=== PATIENT | male | born 1990 | race African-American/Black ===

== ENCOUNTER 2018-08-30 00:08 | Inpatient (IN) | payer OTHER ==
[~2018-08-30] VITALS: Ht 177.8 cm; Wt 75.9 kg
[2018-08-30] VITALS (8 sets, daily range): BP systolic 131–157; BP diastolic 68–90
[2018-08-30] MEDS ORDERED: IV RINGERS SOLUTION,LACTATED 1,000 ML IV SCH (00:29)
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
[2018-08-30] MEDS ORDERED: ALBUTEROL SULFATE 8GM INHALER. INH ONE (00:30)
[2018-08-30] MEDS ORDERED: FAMOTIDINE 20 MG/2 ML VIAL IVP ONE (00:30)
[2018-08-30] MEDS ORDERED: methylPREDNISolone SOD SUCC PF 125 MG/2 ML VIAL. IV ONE (00:30)
[2018-08-30] MEDS ORDERED: FAMOTIDINE 20 MG/2 ML VIAL ONE (01:14)
[2018-08-30] MEDS ORDERED: methylPREDNISolone SOD SUCC PF 125 MG/2 ML VIAL. ONE (01:14)
[2018-08-30 01:19] LABS: BASO # 0.1 x10^3/uL (0.0-0.2); BASO % 0 % (0-3); EOS # 0.3 x10^3/uL (0.0-0.7); EOS % 2 % (0-3); HEMOGLOBIN 9.4 g/dL (13.0-17.5); LYMPH # 1.2 x10^3/uL (1.0-4.8); LYMPH % 7 % (24-48); MEAN CORPUSCULAR HEMOGLOBIN 21 pg (25-35); MEAN CORPUSCULAR HGB CONC 30 g/dL (31-37); MEAN CORPUSCULAR VOLUME 68 fL (79-100); MONO # 1.1 x10^3/uL (0.0-1.1); MONO % 6 % (0-9); NEUT # 15.3 x10^3uL (1.8-7.7); NEUT % 85 % (31-73); PLATELET COUNT 621 x10^3/uL (140-400); RED BLOOD COUNT 4.56 x10^6/uL (4.30-5.70); RED CELL DISTRIBUTION WIDTH 20.5 % (11.5-14.5)
--- NOTE | 2018-08-30 01:26 | EKG ---
[address] [address] Test Date: 2018-08-30 Test Time: 01:07:28 Pat Name: LIZABETH PAYTON Department: Room: Gender: M [employer] Member: RAYMUNDO : 1990 Requested By: JENNIFER HERNANDEZ Order Number: [id number] Reading MD: Rashad Hicks MD Measurements Intervals [place] Rate: 111 P: 42 [place]: 102 QRS: 45 QRSD: 102 T: 16 QT: 334 QTc: 458 Interpretive Statements SINUS TACHYCARDIA Electronically Signed On 09-02-2018 10:30:05 STORAGE RECEIPT POSTER by Rashad Hicks MD
[2018-08-30 01:29] LABS: BILIRUBIN,URINE NEG (NEG); CLARITY,URINE CLEAR; COLOR,URINE YELLOW; GLUCOSE,URINE NEG (NEG)
[2018-08-30 01:30] LABS: BACTERIA,URINE 0 /HPF (0-FEW); NITRITE,URINE NEG (NEG); RBC,URINE 0 /HPF (0-2); SQUAMOUS EPITHELIAL CELL,UR OCC /LPF; UROBILINOGEN,URINE 1 mg/dL (0.2 mg/dL)
[2018-08-30 01:34] LABS: BARBITURATES NEG (NEG); BENZODIAZEPINES NEG (NEG); CANNABINOIDS NEG (NEG); COCAINE NEG (NEG); METHADONE NEG (NEG); OPIATES NEG (NEG); PHENCYCLIDINE NEG (NEG)
[2018-08-30 01:38] LABS: AMPHETAMINE/METHAMPHETAMINE NEG (NEG)
[2018-08-30 01:42] LABS: ALBUMIN 1.8 g/dL (3.4-5.0); CALCIUM 8.5 mg/dL (8.5-10.1); CREATININE 0.7 mg/dL (0.7-1.3); GFR 166.3; MAGNESIUM 1.7 mg/dL (1.8-2.4); POTASSIUM 3.7 mmol/L (3.5-5.1); TOTAL BILIRUBIN 1.7 mg/dL (0.2-1.0); TOTAL PROTEIN 9.9 g/dL (6.4-8.2)
[2018-08-30 01:45] LABS: DIRECT BILIRUBIN 1.3 mg/dL (0.0-0.2)
[2018-08-30] MEDS ORDERED: IV NORMAL SALINE 50ML 50 ML ONE (01:51)
[2018-08-30] MEDS ORDERED: cefTRIAXone SODIUM 1 GM VIAL ONE (01:51)
[2018-08-30 01:57] LABS: INFLUENZA A PATIENT NEGATIVE (NEGATIVE); INFLUENZA B PATIENT NEGATIVE (NEGATIVE)
[2018-08-30 02:07] LABS: % BANDS 1 % (0-9); % EOS 2 % (0-5); % LYMPHS 7 % (24-48); % MONOS 2 % (0-10); % SEGS 88 % (35-66); PLT ESTIMATE INCREASED (ADEQUATE)
[2018-08-30 02:08] LABS: ANISOCYTOSIS MOD; HYPOCHROMIA MARKED; MICROCYTOSIS MARKED
[2018-08-30] MEDS ORDERED: MAGNESIUM SULFATE 2GM 50 ML IV ONE (02:15)
[2018-08-30] MEDS ORDERED: ONDANSETRON PF 4 MG/2 ML VIAL. IV PRN (02:30)
[2018-08-30] MEDS ORDERED: AZITHROMYCIN 500 MG in IV NORMAL SALINE 250ML 250 ML IV ONE (02:30)
[2018-08-30] MEDS ORDERED: IV NORMAL SALINE 250ML 250 ML ONE (02:44)
[2018-08-30] MEDS ORDERED: AZITHROMYCIN 500 MG VIAL. IV ONE (02:44)
[2018-08-30] MEDS ORDERED: IV RINGERS SOLUTION,LACTATED 1,000 ML IV STA (02:45)
[2018-08-30] MEDS ORDERED: IOHEXOL 240 MG/ML 50ML VIAL. ONE (02:47)
[2018-08-30] MEDS ORDERED: VANCOMYCIN 1 GM in IV NORMAL SALINE 250ML 250 ML IV ONE (03:00)
[2018-08-30] MEDS ORDERED: IV RINGERS SOLUTION,LACTATED 1,000 ML IV ONE (03:00)
[2018-08-30] MEDS ORDERED: IOHEXOL 240 MG/ML 50ML VIAL. PO ONE (03:15)
[2018-08-30] MEDS ORDERED: IOHEXOL 350 MG/ML 100 ML VIAL. IV ONE (03:15)
--- NOTE | 2018-08-30 04:09 | RAD ---
CTA Chest and CT abdomen pelvis with contrast: Clinical History: Pain, ulcerative colitis and elevated d-dimer. Axial helical images of the chest abdomen and pelvis were obtained after the administration of 100 cc of IV Isovue-370 contrast. Oral contrast was given as well. CTA chest with contrast: Images are timed appropriately for a pulmonary arterial study. Conventional axial reconstruction was performed in addition to coronal, sagittal and bilateral oblique MIP (maximum intensity projection). This study was ordered to detect possible pulmonary embolism. There are no filling defects to suggest pulmonary embolism. There is consolidation in the lower lobes bilaterally and there are numerous peripheral masslike infiltrate scattered throughout the lungs. There are multiple moderately enlarged lymph nodes in the rebecca and in the mediastinum. There is gynecomastia bilaterally. The thoracic aorta appears normal. Impression: 1. No evidence of pulmonary embolism. 2. Consolidation in the lower lobes and patchy masslike peripheral infiltrates and mild lymphadenopathy. Findings could be secondary to pneumonia or septic emboli or lymphoma. Clinical correlation is suggested. End impression CT Abdomen with contrast: Findings: Liver: Mildly enlarged. The common bile duct appears normal however the intrahepatic biliary tree is moderately dilated. The gallbladder is mostly collapsed. Spleen: Top normal limits in size. There is multiple hypoattenuating lesions in the spleen which are too small to characterize. Pancreas: Unremarkable Adrenal Glands: Unremarkable Kidneys: Unremarkable There is no mass or lymphadenopathy. There is no free air. There is no free fluid. Impression: No acute findings. End Impression CT Pelvis with Contrast: Findings: The urinary bladder appears normal. There is no free fluid. There is no lymphadenopathy. The appendix is not well seen but appears normal. Impression: 1. Mild hepatomegaly. 2. Moderately dilated intrahepatic biliary tree but normal-appearing bile duct. A stricture of proximal common bile duct or Klatskin tumor is possible. 3. Small hyperattenuating lesions in the spleen could be cysts. Septic emboli are possible. See CT a chest with contrast. PQRS Compliance Statement: One or more of the following individualized dose reduction techniques were utilized for this examination: 1. Automated exposure control 2. Adjustment of the mA and/or kV according to patient size 3. Use of iterative reconstruction technique Electronically signed by: Kishor Peterson III, MD (08/30/2018 4:04 AM) [facility]
[2018-08-30] MEDS ORDERED: CALC300T4 PO (04:42)
[2018-08-30] MEDS ORDERED: FERR325T14 PO (04:44)
[2018-08-30] MEDS ORDERED: DICY10CA3 PO (04:44)
[2018-08-30] MEDS: IV RINGERS SOLUTION,LACTATED 1,000 ML IV STA ×2 (04:45→06:45)
--- NOTE | 2018-08-30 04:51 | RAD ---
CTA chest with contrast See CT abdomen pelvis with contrast. Electronically signed by: Kishor Peterson III, MD (08/30/2018 4:46 AM) [facility]
[2018-08-30] MEDS: IPRATRPIUM/ALBUTEROL 0.5/2.5MG 3 ML NEBU. NEB SCH ×4 (05:41→20:21)
[2018-08-30] MEDS: MESALAMINE ER 250 MG CAPSULE.ER PO SCH ×3 (09:00→16:57)
[2018-08-30] MEDS ORDERED: MESALAMINE ER 250 MG CAPSULE.ER PO SCH (09:00)
--- NOTE | 2018-08-30 09:33 | RAD ---
Chest, PA and Lateral: Technique: PA and lateral views of the chest were obtained. History: Chest pain, abdominal pain. Comparison: None. Findings/ impression: The cardiomediastinal silhouette grossly appears unremarkable.Moderate bibasilar lung consolidation changes identified likely pneumonia or atelectasis. Electronically signed by: Avery Raygoza MD (08/30/2018 9:28 AM) [place] [id number]
--- NOTE | 2018-08-30 09:42 | RAD ---
Examination: ABDOMEN SUPINE UPRIGHT History: Abdominal pain Comparison/Correlation: None Findings: Supine and upright views of the abdomen were obtained. Visualized lung bases are clear. Moderate amount of stool in the colon noted. Borderline distended left mid abdominal small bowel loop is questioned. No extraluminal gas. Bony structures are unremarkable. No suspicious abdominal calcification. Impression: Borderline left mid abdominal small bowel loop is questioned. This may represent focal ileus. Consider interval follow-up if obstruction is a concern. Electronically signed by: Sixto Mars MD (08/30/2018 9:38 AM) [id number]
[2018-08-30] MEDS: LACTOBACILLUS RHAMNOSUS GG 1 CAPSULE. PO SCH ×2 (10:52→20:12)
[2018-08-30] MEDS: methylPREDNISolone SOD SUCC PF 40 MG/ML VIAL. IV SCH (10:52)
[2018-08-30] MEDS: IV NORMAL SALINE 1,000ML 1,000 ML IV SCH (10:53)
--- NOTE | 2018-08-30 14:51 | HP ---
ADMIT DATE: 08/30/2018 HISTORY OF PRESENT ILLNESS: The patient is a 27-year-old -[place] male patient at the [facility] In[facility], who presented with a left-sided chest pain, cough with greenish sputum tinged with blood. He has been there for the last 13 months in violation of his probation. He said that has been having this problem for almost 6 weeks ago. He did complain of chest pain, but denied any chills, rigors or fever. He was evaluated in the Emergency Room and apparently his lab work showed that he has marked leukocytosis with a white cell count of 18,000, microcytic hypochromic anemia with a reactive thrombocytosis. His liver enzyme showed he has hyperbilirubinemia with markedly elevated liver enzymes, especially alkaline phosphatase. He has severe protein calorie malnutrition with serum albumin is only 1.8. His D-dimer was high at 6.39. He has had a CT scan of the abdomen and pelvis as well as chest. The CT angio of the chest showed no evidence of pulmonary embolism. It showed that he has consolidation in the lower lobe, some patching, mass-like peripheral infiltrate and mild lymphadenopathy finding could be secondary to pneumonia or septic emboli or lymphoma. Clinical correlation is suggested by the CT scan of the abdomen and pelvis showed that the patient has moderate hepatomegaly, moderate dilated intrahepatic biliary tree, but normal-appearing bile duct, strictured proximal common bile duct or Klatskin tumor is possible. He has a small hyper-attenuating lesion in the spleen that could be cystic septic emboli, possible. The patient was admitted and was treated with IV antibiotic in the form of Zithromax and ceftriaxone as well as steroids and bronchodilator. PAST SURGICAL HISTORY: Significant for sickle cell trait and ulcerative colitis. 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 The last visit was in August 2016. He underwent colonoscopy and esophagogastroduodenoscopy and ERCP and stent deployment to the biliary tract. ALLERGIES: He has no known drug allergies. MEDICATIONS: He is currently on following medications: He is on dicyclomine 10 mg daily, ferrous sulfate 325 mg once a day, calcium carbonate for Tums Extra Strength ___ mg after meals. He is also on mesalamine. FAMILY HISTORY: He has 4 brothers and 2 sisters, who are older. His father is still alive at age of 41, has sickle cell trait. Mother is alive at age of 48 and has hypertension. SOCIAL HISTORY: He is single, has no children, never . He does not smoke, drink alcohol or use recreational drugs. PHYSICAL EXAMINATION: GENERAL: When I examined him, he looked well and was clearly in no apparent respiratory distress, pale, but no jaundice, cyanosis or thyromegaly. No jugular venous distention. No limb edema. VITAL SIGNS: His heart rate was 111, blood pressure 142/74, temperature was 98.7, respiratory rate was 18 and oxygen saturation was 96%. HEAD, EYES, EARS, NOSE AND THROAT: Showed normocephalic, atraumatic. NECK: Supple. HEART: Showed normal first and second heart sounds. No gallop, rub or murmur. CHEST: Clear to auscultation. No crepitation or rhonchi. ABDOMEN: Distended, soft, nontender. No guarding or rigidity. No organomegaly. All hernial orifices are intact. Bowel sounds normal. NEUROLOGIC: He was awake, alert, responding appropriately. Cranial nerves are intact. EXTREMITIES: He moves extremities without difficulty, ambulates without assistance or assistive devices. LABORATORY DATA: Showed a white cell count of 18,000, hemoglobin 9.4, hematocrit 31, MCV 68, and platelet count 621,000 with normal manual differential. His prothrombin time was 10.3, INR 1, aPTT was 27. D-dimer was 6.39. Serum sodium was 133, potassium 3.7, chloride 99, bicarbonate 26, anion gap of 8, BUN 10, creatinine 0.7, estimated GFR was 166 mL per minute. His glucose was 98, lactic acid 0.9, calcium was 8.5, magnesium was 1.7. Total protein was 1.7, direct bilirubin was 1.3. AST, ALT are elevated. Alkaline phosphatase are more elevated. CK was 2.8. Total protein was 9.9 and albumin was 1.8. Amylase and lipase were normal. TSH was normal at 2.024. His urinalysis was essentially unremarkable. Toxic screen was negative and influenza A, B, and group A streptococcus rapid test were all negative. IMPRESSION: In summary, this is a 27-year-old -[place] male patient, an inmate at [facility], was admitted with left-sided chest pain, cough, sputum with tinges of blood was found to have left lower lobe pneumonia for which he is now on Zithromax and Rocephin. He apparently has also dilated intrahepatic duct and apparently has had what seems to be ulcerative colitis with sclerosing cholangitis, which he apparently has had before a stent deployed. He is also has sickle cell trait. PLAN: My plan is to continue with IV antibiotic. Given that the possibility of septic pulmonary emboli, I will arrange for him to have an echocardiogram to look for vegetation and we will get the records from [facility] to find out exactly whether he has ulcerative colitis and whether he has sclerosing cholangitis or other reasons that caused the biliary obstruction. SONNY FIELDS MD DR: SHELBIE/eneida JOB#: [id number] / [id number]
[2018-08-30] MEDS: VANCOMYCIN PER PHARMACY MC PRN (14:59)
[2018-08-30] MEDS: PIPERACILLIN/TAZOBACTAM 3.375 GM in IV NORMAL SALINE 50ML 50 ML IV SCH (15:34)
[2018-08-30] MEDS ORDERED: VANCOMYCIN 2 GM in IV NORMAL SALINE 500ML 500 ML IV ONE (16:00)
[2018-08-31] VITALS: BP 134/70
[2018-08-31] MEDS: IV NORMAL SALINE 1,000ML 1,000 ML IV SCH ×2 (02:25→13:40)
[2018-08-31] MEDS: PIPERACILLIN/TAZOBACTAM 3.375 GM in IV NORMAL SALINE 50ML 50 ML IV SCH ×4 (02:25→23:19)
[2018-08-31] MEDS: VANCOMYCIN 1.25 GM in IV NORMAL SALINE 250ML 250 ML IV SCH ×3 (03:24→16:33)
[2018-08-31 04:00] VITALS: BP 133/61
[2018-08-31] MEDS: IPRATRPIUM/ALBUTEROL 0.5/2.5MG 3 ML NEBU. NEB SCH ×4 (05:07→20:54)
[2018-08-31 06:22] LABS: HEMATOCRIT 28.3 % (39.0-53.0); HEMOGLOBIN 8.5 g/dL (13.0-17.5); RED BLOOD COUNT 4.1 x10^6/uL (4.30-5.70); RED CELL DISTRIBUTION WIDTH 20.3 % (11.5-14.5); WHITE BLOOD COUNT 17.7 x10^3/uL (4.0-11.0)
[2018-08-31 06:48] LABS: ALBUMIN 1.5 g/dL (3.4-5.0); ALBUMIN/GLOBULIN RATIO 0.2 (1.0-1.7); CALCIUM 8.5 mg/dL (8.5-10.1); CREATININE 0.6 mg/dL (0.7-1.3); GFR 198.6; POTASSIUM 3.7 mmol/L (3.5-5.1); TOTAL PROTEIN 8.4 g/dL (6.4-8.2)
[2018-08-31] MEDS: methylPREDNISolone SOD SUCC PF 40 MG/ML VIAL. IV SCH (07:38)
[2018-08-31] MEDS: LACTOBACILLUS RHAMNOSUS GG 1 CAPSULE. PO SCH ×2 (07:38→23:19)
[2018-08-31] MEDS ORDERED: AZITHROMYCIN 250 MG in IV NORMAL SALINE 250ML 250 ML IV SCH (09:00)
--- NOTE | 2018-08-31 09:21 | CARD ---
MR#: [id number] Date of Study: 08/31/2018 Ordering Physician: SONNY FIELDS, Referring Physician: SONNY FIELDS, Tech: Varsha Law APPROVED REPORT EXAM: Two-dimensional and M-mode echocardiogram with Doppler and color Doppler. Other Information Quality : GoodHR: 84bpm INDICATION Septic Pulmonary Embolism 2D DIMENSIONS RVDd2.3 (2.9-3.5cm)Left Atrium(2D)3.9 (1.6-4.0cm) IVSd1.0 (0.7-1.1cm)Aortic Root(2D)3.0 (2.0-3.7cm) LVDd6.1 (3.9-5.9cm)LVOT Diameter2.6 (1.8-2.4cm) PWd1.1 (0.7-1.1cm)LVDs3.9 (2.5-4.0cm) FS (%) 36.0 %SV119.6 ml LVEF(%)64.7 (>50%) Aortic Valve AoV Peak Luis Manuel.120.2cm/sAoV VTI28.2cm AO Peak GR.5.8mmHgLVOT Peak Luis Manuel.95.5cm/s LVOT VTI 21.34cmAO Mean GR.4mmHg KRISTIAN (VMAX)4.51tr3ZBB (VTI)3.95cm2 Mitral Valve MV E Lfdxqwnx54.0cm/sMV DECEL AGZH138bn MV A Ggcpnfwx85.3cm/sE/A Ratio1.2 Pulmonary Valve PV Peak Pbxhwiwc045.7cm/sPV Peak Grad.4mmHg Tricuspid Valve TR P. Yldgface769ad/sRAP APBTZXJD3ggCb TR Peak Gr.75bjGqEDEJ36eqCn Pulmonary Vein S1 Tpvwuwup71.6cm/sD2 Wcyaibpp88.1cm/s LEFT VENTRICLE The Left Ventricle is mildly dilated. There is borderline concentric left ventricular hypertrophy. Th e left ventricular systolic function is normal. The Ejection Fraction is 55-60%. There is normal LV s egmental wall motion. The left ventricular diastolic function and filling is normal for age. RIGHT VENTRICLE The right ventricle is normal size. There is normal right ventricular wall thickness. The right ventr icular systolic function is normal. ATRIA The left atrium is borderline dilated. The right atrium is mildly dilated. The atrial septum is aneur ysmal. AORTIC VALVE The aortic valve is normal in structure and function. Doppler and Color Flow revealed no significant aortic regurgitation. There is no significant aortic valvular stenosis. MITRAL VALVE The mitral valve is thickened but opens well. There is no evidence of mitral valve prolapse. There is no mitral valve stenosis. Doppler and Color-flow revealed trace mitral regurgitation. TRICUSPID VALVE The tricuspid valve is normal in structure and function. Doppler and Color Flow revealed trace tricus pid regurgitation. There is no tricuspid valve stenosis. PULMONIC VALVE The pulmonary valve is normal in structure and function. Doppler and Color Flow revealed trace pulmon ic valvular regurgitation. GREAT VESSELS The aortic root is normal in size. The IVC is normal in size and collapses >50% with inspiration. PERICARDIAL EFFUSION There is no evidence of significant pericardial effusion. Critical Notification Critical Value: No <Conclusion> The left ventricular systolic function is normal. The Ejection Fraction is 55-60%. There is normal LV segmental wall motion. Trace mitral regurgitation. Trace tricuspid regurgitation. There is no evidence of significant pericardial effusion. Signed by : Chalino Solis, Electronically Approved : 08/31/2018 09:20:49
[2018-08-31 11:00] VITALS: BP 147/77
[2018-08-31 16:00] VITALS: BP 149/69
[2018-08-31 16:11] LABS: VANC TR 13.5 mcg/mL (10.0-20.0)
[2018-08-31 16:20] LABS: ALBUMIN 1.7 g/dL (3.4-5.0); DIRECT BILIRUBIN 0.8 mg/dL (0.0-0.2)
[2018-08-31] MEDS: VANCOMYCIN PER PHARMACY MC PRN (17:10)
--- NOTE | 2018-08-31 20:08 | PN ---
DATE: 08/31/2018 SUBJECTIVE: The patient is resting slightly propped up in bed, in no apparent respiratory distress. He is awake, alert, feeling generally better than yesterday, although he continued to have cough with scanty sputum, tinged with blood. His shortness of breath is much improved. OBJECTIVE: GENERAL: On examining him, he looked pale, but no jaundice, cyanosis, or thyromegaly. No jugular venous distention. No limb edema. VITAL SIGNS: His heart rate was 105, blood pressure was 147/77, temperature was 98.4, respiratory rate 24 and oxygen saturation was 94% on room air. HEAD, EYES, EARS, NOSE AND THROAT: Normocephalic, atraumatic. NECK: Supple. HEART: Showed normal first and second heart sounds. No gallop, rub or murmur. CHEST: Clear to auscultation. No crepitation or rhonchi. ABDOMEN: Distended, soft, nontender. No guarding or rigidity. No organomegaly. All hernial orifice intact. Bowel sounds normal. NEUROLOGIC: He was awake, alert, responding appropriately. All cranial nerves intact. He moves extremities without difficulty. He ambulates without assistance or assistive devices. LABORATORY DATA: His white cell count is slightly down to 17,700, hemoglobin was 8.5, hematocrit 28, MCV 69, and platelet of 499,000. His chemistry showed a serum sodium 140, potassium 3.7, chloride 107, bicarbonate 26, anion gap of 7, BUN 12, creatinine 0.6, estimated GFR was high at 198, glucose was 102. Total serum calcium was 8.5. Total bilirubin is normal; however, his AST, ALT, alkaline phosphatase are still slightly elevated or trending down. His total protein was 8.4, albumin was 1.5. ASSESSMENT AND PLAN: 1. Healthcare-associated pneumonia for which he is now on Zosyn and vancomycin. 2. He has primary sclerosing cholangitis. His liver enzymes are elevated, although they are trending down. We did an echocardiogram because of the suspicion that the patient might have septic pulmonary emboli; however, his echocardiogram showed his left ventricular systolic function is normal, ejection fraction 55-60%. He has normal left ventricular segmental wall motion, trace mitral regurgitation, trace tricuspid regurgitation. My plan is to continue with IV antibiotic and once if the cultures are negative, we will be able to switch him to oral antibiotic and he can finish treatment as an outpatient. I would also check his iron panel and serum ferritin and we will start him on iron supplement. SONNY FIELDS MD DR: SHELBIE/eneida JOB#: [id number] / [id number]
[2018-08-31 20:35] VITALS: BP 156/80
[2018-08-31 23:28] VITALS: BP 148/79
[2018-09-01] MEDS: VANCOMYCIN 1.25 GM in IV NORMAL SALINE 250ML 250 ML IV SCH ×3 (00:11→17:09)
[2018-09-01 04:56] VITALS: BP 153/84
[2018-09-01] MEDS: IPRATRPIUM/ALBUTEROL 0.5/2.5MG 3 ML NEBU. NEB SCH ×3 (06:06→15:32)
[2018-09-01] MEDS: IV NORMAL SALINE 1,000ML 1,000 ML IV SCH ×2 (06:28→16:21)
[2018-09-01] MEDS: PIPERACILLIN/TAZOBACTAM 3.375 GM in IV NORMAL SALINE 50ML 50 ML IV SCH ×2 (06:29→16:20)
[2018-09-01] MEDS: LACTOBACILLUS RHAMNOSUS GG 1 CAPSULE. PO SCH (07:41)
[2018-09-01 08:00] VITALS: BP 148/85
[2018-09-01 11:27] VITALS: BP 140/79
[2018-09-01] MEDS ORDERED: ONDANSETRON PF 4 MG/2 ML VIAL. IV PRN (12:45)
[2018-09-01] MEDS ORDERED: ONDANSETRON PF 4 MG/2 ML VIAL. ONE (12:49)
[2018-09-01 16:12] LABS: CALCIUM 8.6 mg/dL (8.5-10.1); CREATININE 0.7 mg/dL (0.7-1.3); GFR 166.3; POTASSIUM 3.9 mmol/L (3.5-5.1)
[2018-09-01 17:08] LABS: HEMATOCRIT 31.6 % (39.0-53.0); HEMOGLOBIN 9.6 g/dL (13.0-17.5); RED BLOOD COUNT 4.64 x10^6/uL (4.30-5.70); RED CELL DISTRIBUTION WIDTH 20.9 % (11.5-14.5); WHITE BLOOD COUNT 12.4 x10^3/uL (4.0-11.0)
[2018-09-01] MEDS ORDERED: MESA500C PO (17:29)
[2018-09-01] MEDS ORDERED: AMOX1TAB61 PO (17:29)
[2018-09-01 17:59] VITALS: BP 146/65
--- NOTE | 2018-09-01 18:07 | DS ---
DATE OF DISCHARGE: 09/01/2018 HOSPITAL COURSE: The patient is a 27-year-old -[place] male patient, an inmate [facility], was admitted with left-sided chest pain, cough, sputum with tinges of blood, was found to have left lower lobe pneumonia for which he is now on Zithromax. He was started initially and Zithromax and Rocephin, I broaden the spectrum of antibiotic to vancomycin and Zosyn. So far, his blood cultures are negative. His liver enzymes were elevated consistent with obstructive jaundice and it transpired that he is known to have ulcerative colitis and a CT scan showed dilated intrahepatic duct and has primary sclerosing cholangitis for which he is followed by a branch operation evaluation manager at [facility] in fact has also ERCP and biliary stent. He remained hemodynamically stable and afebrile. His white cell count is trending down. As his blood culture was negative, I switched him to oral Augmentin, start him on mesalamine and a decision was made to discharge him back to continue treatment as with oral antibiotic. His liver enzymes continued to be high; however, he probably needs to have make an appointment with his branch operation evaluation manager for colonoscopy and perhaps also endoscopy or ERCP and stent deployment as his intrahepatic bile ducts are markedly dilated. PHYSICAL EXAMINATION: GENERAL: When I saw him this afternoon, he looked well and was clearly in no apparent respiratory distress. No pallor, jaundice, cyanosis, or thyromegaly. No jugular venous distension. No limb edema. VITAL SIGNS: His heart rate was 74, blood pressure 140/79, temperature was 98.1, respiratory rate was 18 and oxygen saturation was 98%. HEAD, EYES, EARS, NOSE AND THROAT: Normocephalic, atraumatic. NECK: Supple. HEART: Showed normal first and second heart sounds. No gallop, rub or murmur. CHEST: Clear to auscultation. No crepitation or rhonchi. ABDOMEN: Distended, soft, nontender. No guarding or rigidity. No organomegaly. All hernial orifices intact. Bowel sounds normal. NEUROLOGIC: He was awake, alert, responding appropriately. All cranial nerves intact. He moves extremities without difficulty, ambulates without assistance or assistive devices. LABORATORY DATA: Serum sodium was 138, potassium 3.9, chloride 104, bicarbonate 27, anion gap of 7, BUN 11, creatinine 0.7, estimated GFR was 166 mL per minute. His glucose was 93 and calcium was 8.6. His white cell count is down to 12,400, hemoglobin 9.6, hematocrit 31.6, MCV 68 and platelet count of 541, 000. DISCHARGE MEDICATIONS: He was discharged back to continue on Augmentin 875 mg twice a day with food for 7 days, mesalamine for Pentasa 500 mg 4 times a day for ulcerative colitis, should continue on calcium carbonate for Tums 300 mg after meals, dicyclomine 10 mg daily and ferrous sulfate 325 mg daily. FINAL DISCHARGE DIAGNOSES: 1. Healthcare-associated pneumonia. 2. Ulcerative colitis. 3. Primary sclerosing cholangitis. 4. Sickle cell trait with microcytic hypochromic anemia. SONNY FIELDS MD DR: SHELBIE/eneida JOB#: [id number] / [id number]
== END 2018-09-01 18:36 | disposition home or self-care (01) | DRG 871 ==
LOC: EEVIPCON 00:08 → ER 00:08 → ICU 02:00 → ER 03:55
PROVIDERS: ADMIT Internal Medicine; ATTEND Internal Medicine
DX: A41.9 Sepsis, unspecified organism (principal); J18.1 Lobar pneumonia, unspecified organism; E43 Unspecified severe protein-calorie malnutrition; K83.1 Obstruction of bile duct; K83.01 Primary sclerosing cholangitis; K51.90 Ulcerative colitis, unspecified, without complications; D50.9 Iron deficiency anemia, unspecified; D57.3 Sickle-cell trait; Y95 Nosocomial condition; K21.9 Gastro-esophageal reflux disease without esophagitis; Z83.2 Family history of diseases of the blood and blood-forming organs and certain disorders involving the immune mechanism; Z82.49 Family history of ischemic heart disease and other diseases of the circulatory system
CPT/HCPCS: 36415; 71046; 71275; 74021; 74174; 74177; 80048; 80053; 80076; 80202; 80307; 81001; 82150; 82550; 82728; 83540; 83550; 83605; 83615; 83690; 83735; 83880; 84443; 84484; 85007; 85025; 85027; 85045; 85379; 85610; 85730; 86703; 86705; 86709; 86803; 86850; 86900; 86901; 87040; 87070; 87086; 87340; 87641; 87804; 87880; 93005; 93306; 94640; 96361; 96365; 96367; 96375; J0456; J0696; J2405; J2543; J2920; J2930; J3010; J3370; J3475; J3490; J7040; J7050; J7120; J7620; Q9966; Q9967; 99285-25; J7030